=== PATIENT | female | born 1940 | race Caucasian/White ===

== ENCOUNTER 2024-10-23 17:09 | Emergency (ER) | payer MEDICARE, OTHER, SELFPAY ==
[2024-10-23] VITALS (18 sets, daily range): BP systolic 123–171; BP diastolic 65–104; PULSE 81–108; RESP 16–28; TEMP 35.7–36.9; O2SAT 95–100; BMI 24.5
--- NOTE | 2024-10-23 17:11 | CT_ITS ---
PROCEDURE: STROKE CTA HEAD AND NECK W/CON 10/23/2024 REASON FOR EXAM: NEURO DEFICIT, ACUTE, STROKE SUSPECTED TECHNIQUE: STROKE CTA HEAD AND NECK W/CON Multiplanar Sagittal and Coronal images were obtained. 3D post processing was performed CONTRAST: Isovue 370 VOLUME: 100 mL One or more dose reduction techniques were used (e.g., Automated exposure control, adjustment of the mA and/or kV according to patient size, use of iterative reconstruction technique). RADIATION DOSE SUMMARY: DLP: 721 mGycm COMPARISON: Same-day noncontrast CT head. FINDINGS: See same day noncontrast CT head for discussion of nonvascular findings. CTA neck: Four-vessel aortic arch with moderate calcific plaque of the left vertebral artery origin resulting in mild narrowing. The right vertebral artery origin is widely patent. Mixed calcific plaque of the bilateral cervical carotid arteries without focal stenosis or narrowing by NASCET criteria. CTA head: Mixed calcific plaque of the bilateral carotid siphons resulting in mild multifocal narrowing. 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 The bilateral anterior and posterior cerebral arteries are widely patent. Mixed, predominantly calcified plaque of the V4 segment of the left vertebral artery resulting in moderate narrowing. Major venous structures: Unremarkable. Other findings: Left pleural effusion, partially visualized. Cervical spondylosis. Calcified right thyroid gland nodule, which does not meet criteria for dedicated follow-up. CT/STROKE CTA Head AND Neck W/Con IMPRESSION: 1. Occlusion of the M1 segment of the right MCA with distal reconstitution/retr ograde filling. Correlation with CT perfusion or MRI recommended to evaluate for chronicity. 2. Additional cafc-is-uioauunu mixed plaque as described. 3. Partially visualized left pleural effusion. Dr. Staton discussed these findings with Dr. Zepeda via telephone at 5:48 pm o n 10/23/24. Reading Location: [id number]
--- NOTE | 2024-10-23 17:11 | CT_ITS ---
EXAM: STROKE BRAIN/HEAD WITHOUT CONT CLINICAL HISTORY: 84 y/o F with NEURO DEFICIT, ACUTE, STROKE SUSPECTED. Speech difficulty. COMPARISON: None. TECHNIQUE: Routine CT imaging of the head without IV contrast. Additional multiplanar reformats were obtained. Dose reduction techniques were used including intermediate exposure control (AEC),iterative reconstruction technique, and/or mA and/or KV dose adjustments based on patient's size. FINDINGS: The ventricles, sulci and cisterns are mildly prominent, compatible with patient age. There is no evidence of acute intracranial hemorrhage or herniation. There is no midline shift, mass effect, or extra- axial collection. Mild patchy supratentorial white matter hypodensities. 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 The zuñiga-white matter interfaces are otherwise maintained. Prior right ocular lens replacement. The visualized paranasal sinuses and mastoids are unremarkable. No acute calvarial fracture or scalp hematoma. CT/STROKE Brain/Head without Cont IMPRESSION: No acute intracranial finding. Reading Location: [id number]
--- NOTE | 2024-10-23 17:13 | EDS_ITS ---
HPI History of Present Illness Chief Complaint: Stroke Alert Detail of Chief Complaint: Stroke Informant: patient and EMS Narrative Narrative: Patient presents the emergency department with concern for stroke. Apparently was having dinner with a friend who had gone to the bathroom who came back and noted that she was slurring her speech and patient not moving left side. EMS was contacted. Last known well approximately 1621. Patient denies headache. She is on aspirin but no other blood thinners. She denies chest pain or significant dyspnea. She tells me she had surgery on her left lung in May. [facility] Medical History (Updated 10/23/24 @ 17:[address] Osvaldo Zepeda, DO) Rheumatoid arthritis Lung cancer Allergy/AdvReac Type Severity Reaction Status Date / Time Penicillins Allergy Intermediate Hives Verified 10/23/24 17:33 Social History Smoking Status: Unknown if ever smoked ROS ROS ED Review of Systems ROS Unobtainable: other Constitutional Constitutional ED: Reports lethargy; Denies chills, fever(s), sweats or weight loss Eyes Eyes: Denies blurry vision, change in vision or diplopia ENT ENT ED: Denies rhinorrhea or sore throat Cardiovascular Cardiovascular: Denies chest pain, orthopnea or racing heartbeat Respiratory/Chest Respiratory/Chest: Denies cough, dyspnea, dyspnea on exertion, orthopnea or sputum Gastrointestinal Gastrointestinal: Denies abdominal pain, diarrhea, nausea or vomiting Genitourinary Genitourinary ED: Denies dysuria, hematuria or urinary frequency Musculoskeletal Musculoskeletal: Denies arthralgias, back pain, myalgias or neck pain Integumentary Denies abscess, Abrasions or rash Neurologic Neurologic: Reports weakness and other Details: Slurred speech ; Denies headache(s) Psychiatric Psychiatric: Denies anxiety, depression or suicidal thoughts Endocrine Endocrinology: Denies polydipsia, polyphagia or polyuria Hematologic/Lymphatic Hematologic/Lymphatic: Denies easy bleeding, easy bruising or lymphadenopathy Allergic/Immunologic Allergic/Immunologic ED: Denies mouth swelling, tongue swelling or urticaria EXAM Physical Exam Const Vital Signs: 10/23/24 17:10 10/23/24 17:22 10/23/24 17:22 Temperature Temperature Source Pulse Rate 102 H 98 Respiratory Rate 16 16 Blood Pressure 140/80 H 171/65 H Blood Pressure Mean 100 100 Pulse Ox 96 95 97 Oxygen Delivery Method Room Air Nasal Cannula Nasal Cannula Oxygen Flow Rate (L/min) 2 2 10/23/24 17:22 10/23/24 17:38 10/23/24 17:41 Temperature 97.5 F L Temperature Source Oral Pulse Rate 95 92 Respiratory Rate 22 H 18 Blood Pressure 171/65 H 126/67 H 135/73 H Blood Pressure Mean 100 93 Pulse Ox 97 98 Oxygen Delivery Method Room Air Nasal Cannula Oxygen Flow Rate (L/min) 2 Positive well nourished and well developed General Appearance ED: well developed and NAD HEENT Reports TM's clear and moist mucous membranes normocephalic and atraumatic; Negative for trauma or tenderness Tympanic Membrane ED: Yes TM's clear Eyes PERRL and EOMs intact bilaterally General Eye ED: Negative for pale conjunctiva or scleral icterus Neck no lymphadenopathy, supple and no JVD General: Negative for tenderness Chest Wall inspection of chest normal and palpation of chest normal Chest: Negative for tenderness Resp normal respiratory effort and clear to auscultation bilaterally Effort and Inspection: Negative for respiratory distress or pain with movement Auscultation: Negative for rhonchi, wheezes or diminished lung sounds Cardio regular rate, regular rhythm, S1 normal heart sound, S2 normal heart sound and no murmurs Peripheral Pulses: pulses 2+ throughout GI normal to inspection, nondistended, normoactive bowel sounds, soft to palpation, non-tender, non-distended and no masses Back/Spine no CVA tenderness and no thoracic nor lumbar tenderness Extremity normal to inspection General Extremety ED: Negative for edema General Extremity: Negative for edema Neuro oriented x3, CN's II-XII intact bilaterally, no sensory deficits noted and gait normal Neuro Narrative: Mild left-sided facial droop. Initially. MS was not able to move her left side but now able to lift her left arm and hold it for a count of 8 before drops. Able to hold her left leg up for a count of 3 to 4 drops to the bed. She has noted to have subtle weakness of the left side with continued slurred speech/dysarthria. NIH stroke scale of 7. Sensorium / Orientation: awake, alert, oriented to person, oriented to place and oriented to time Motor Exam: strength 5/5 throughout and strength abnormal Psych mental status grossly normal Skin no rashes or lesions noted and no wounds MDM MDM MDM Narrative Medical decision making narrative: Patient presents to the emergency department with strokelike symptoms in the window for TNLinseyse. NIH stroke scale for me was a 7 and symptoms seem to slightly be improving compared to EMS arrival. Stroke team was called. CT scan of the brain without contrast obtained showed no intracranial hemorrhage. CTA of the brain per stroke neurologist shows an M1 occlusion/LVO. CBC with differential obtained showed white count of 9.1 with hemoglobin 10.2 and platelet count of 198. Chemistries pending. EKG showed a sinus rhythm with ventricular rate of 91 bpm with right bundle branch block. Discussed risk benefits with patient and she agrees to proceeding with thrombolytic therapy. W ill transfer patient to [facility] given the LVO on CTA. Patient transferred in guarded condition Lab Data Attestation: I reviewed the patient's lab results. Labs: Laboratory Results - last 24 hr 10/23/24 17:10 WBC 9.1 RBC 3.40 L Hgb 10.2 L Hct 31.6 L MCV 92.9 MCH 30.0 MCHC 32.3 RDW Std Deviation 49.3 H RDW Coeff of Jimmy 14.6 Plt Count 198 MPV 11.4 Immature Gran % (Auto) 0.500 Neut % (Auto) 73.5 H Lymph % (Auto) 16.3 L [place] % (Auto) 7.8 Eos % (Auto) 1.4 Baso % (Auto) 0.5 Absolute Neuts (auto) 6.7 Absolute Lymphs (auto) 1.49 Nucleated RBC % 0 Radiography Diagnostic Testing: Clinical Impression(s) from Imaging Studies Brain CT 10/23/24 17:11 IMPRESSION: No acute intracranial finding. Reading Location: [facility] EKG Initial EKG: Attestation: I personally reviewed and interpreted this EKG as follows: Comments: Sinus rhythm with rate of 91 bpm with right bundle branch block Critical Care Time Critical Care Time: Yes Critical care time (excluding procedures): 30-74 minutes, Including time spent:, Discussing w/Patient &/or Family/Senior Consumer Insights Consultant, Discussing w/Consultants, Arranging Admission or Transfer, Performing Direct Patient Care at Bedside and - (30 minutes) Discharge Plan Triage Chief Complaint: Stroke Alert ED Provider: Osvaldo Zepeda Dx/Rx/DC Orders Clinical Impression: Stroke, Hypertension Primary Care Provider: Care Physician,No Primary Referrals: Care Physician,No Primary [Primary Care Provider] - Print Language: Azeri
[2024-10-23 17:24] LABS: Absolute Lymphocyte Count 1.49 X10^3/uL (0.83-4.51); Absolute Neutrophil Count 6.7 X10^3/uL (2.0-7.7); Basophil# 0.05 X10^3/uL; Basophil% 0.5 % (0-1); Eosinophil# 0.13 X10^3/uL; Eosinophils% 1.4 % (0-5); Hematocrit 31.6 % (37-47); Hemoglobin 10.2 g/dL (12.0-15.0); Lymphocyte # 1.49 X10^3/ul (0.83-4.51); Lymphocyte % 16.3 % (19-41); Mean Corp Hgb Conc 32.3 g/dL (32-36); Mean Corpuscular Volume 92.9 fL (81-99); Mean Platelet Vol. 11.4 fl (6.2-12.0); Monocyte# 0.71 X10^3/uL; Monocyte% 7.8 % (0-10); NRBC Flagged by Analyzer 0 % (0-5); Neutrophil # 6.71 X10^3/uL (2.7-7.7); Neutrophil % 73.5 % (47-70); Platelet Count 198 K/mm3 (150-450); RBC Distribution Width CV 14.6 % (11.6-14.6); RBC Distribution Width SD 49.3 fl (35.1-43.9); White Blood Count 9.1 K/mm3 (4.4-11.0)
[2024-10-23] MEDS: 0.9% Saline Lock 10 ML Syringe IV ×2 (17:37→17:39)
[2024-10-23] MEDS: TENECTEPLASE 2419.2 MG IV (17:38)
[2024-10-23 17:53] LABS: Anion Gap 15 (5-15); BUN 39 mg/dL (4-19); BUN/Creat Ratio 21.2 RATIO (10-20); Calcium,Total 9.4 mg/dL (7.6-11.0); Chloride 105 mmol/L (98-108); Creatinine, Serum 1.85 mg/dL (0.70-1.20); EST Glomerular Filtration Rate 27 (>60); Glucose 111 mg/dL (70-99); Potassium 4.8 mmol/L (3.3-5.1); Sodium Level 140 mmol/L (133-145)
[2024-10-23 17:55] LABS: Troponin T High Sensitivity 110 ng/L (<=14)
--- NOTE | 2024-10-23 17:57 | PCA ---
I CALLED [facility] TO SET UP A RIDE FOR PT GOING TO [facility]. [facility] A FEW MINUTES LATER CALLED ME BACK AND SAID THAT [facility] DOESNT HAVE THE PT ON THEIR BOARD. I CALLED THEN, [facility] TO CLARIFY WITH THEM THAT THEY HAVE THE PT INFORMATION AND ACCEPTENCE. DEEDEE ON THE TRANSFER LINE, SHE SAID YES, THEY HAVE ALL THE INFORMATION. I THEN, ASKED THAT SHE CALL [facility] AND VARIFY THE INFORMATION WITH THEM AND SAID TO TELL [facility] TO CALL ME BACK ONCE DONE. I GAVE THE PHONE NUMBER TO [facility] WE HAVE SO THAT DEEDEE CAN QUICKLY CALL AND WE CAN MOVE THINGS ALONG.
--- NOTE | 2024-10-23 18:07 | PCA ---
[facility] CALLED BACK AND SAID THEY ARE UNABLE TO FLY BECAUSE OF WEATHER. I THEN CALLED [facility] AND THEY ALSO DENIED DUE TO WEATHER. I REQUESTED ICU [facility]. THEY ARE GOING TO CALL BACK WITH AN ETA
[2024-10-23] MEDS: 0.9% Normal Saline (1000mL) 1,000 ML 100 ML IV (18:20)
--- NOTE | 2024-10-23 19:14 | ED.RN ---
SWELLING NOTED TO LEFT UPPER LIP. DR. LARSEN AND ORDERS FOLLOWED
[2024-10-23] MEDS: DiphenhydrAMINE 50 MG/ML Syringe IV (19:15)
[2024-10-23 19:25] LABS: Prothrombin Time (Protime)PT. 13.3 SECONDS (11.7-14.9)
[2024-10-23] MEDS: MethylPREDNISolone 125 MG/2 ML Vial IV (19:25)
[2024-10-23 19:38] LABS: Partial Thromboplast Time < 20.0 Seconds (24.1-36.2)
[2024-10-23 20:52] LABS: Troponin T High Sens 2 HR 121 ng/L (<=14)
== END 2024-10-23 22:24 | disposition short-term general hospital (02) ==
PROVIDERS: Emergency Provider Emergency Medicine; Visit Provider Emergency Medicine
DX: I63.511 Cerebral infarction due to unspecified occlusion or stenosis of right middle cerebral artery (principal); I10 Essential (primary) hypertension; I45.10 Unspecified right bundle-branch block; R29.707 NIHSS score 7; Z79.82 Long term (current) use of aspirin; R47.81 Slurred speech; R29.810 Facial weakness; R47.1 Dysarthria and anarthria
CPT/HCPCS: 51702; 70450; 70496; 70498; 80048; 84484; 85025; 85610; 85730; 93005; 96361; 96374; 96375; 99285; J3101; Q9967